=== PATIENT | female | born 1980 | race African-American/Black ===

== ENCOUNTER 2018-05-29 22:09 | Emergency (ER) | payer MEDICAID, MEDICARE ==
[~2018-05-29] VITALS: Ht 180.3 cm; Wt 61.0 kg
[2018-05-30] MEDS ORDERED: ONDANSETRON HCL 4MG/2ML VIAL IV STA (02:57)
[2018-05-30] MEDS ORDERED: KETOROLAC 30MG/ML VIAL IV STA (02:57)
[2018-05-30 03:25] LABS: BASOPHILS % 0.4 % (0.0-2.0); EOSINOPHILS % 1.3 % (0.0-5.0); HEMATOCRIT. 31.7 % (36.0-48.0); HEMOGLOBIN. 9.6 g/dL (12.0-16.0); LYMPHOCYTES % 24.7 % (20.0-50.0); MEAN CORPUSCULAR HEMOGLOBIN 21.1 pg (28.0-32.0); MEAN CORPUSCULAR VOLUME 69.9 fL (81.0-99.0); MEAN PLATELET VOLUME 9.1 fl (7.4-10.4); MONOCYTES % 7.1 % (2.0-8.0); NEUTROPHILS % 66.5 % (40.0-76.0); PLATELET 190 x1000/uL (130-400); RED BLOOD CELL COUNT 4.54 mill/uL (4.2-5.4); RED CELL DISTRIBUTION WIDTH 26.7 % (11.6-14.6)
[2018-05-30 03:30] LABS: INR 1.1; PROTHROMBIN TIME 10.9 sec (9.4-11.6)
[2018-05-30 03:42] LABS: CHLORIDE 108 mEq/L (98-107)
[2018-05-30 03:58] LABS: HCG SCREEN NEGATIVE
[2018-05-30] MEDS ORDERED: OXYCODONE HCL/ACETAMINOPHEN 5/325MG TABLET PO ONE (04:00)
[2018-05-30 04:36] VITALS: BP 117/77
[2018-05-30 06:12] LABS: PLATELET ESTIMATE NORMAL
== END 2018-05-30 06:30 | disposition home or self-care (01) ==
LOC: ER 22:09
DX: K52.9 Noninfective gastroenteritis and colitis, unspecified (principal); R10.9 Unspecified abdominal pain; J45.909 Unspecified asthma, uncomplicated
CPT/HCPCS: 36415; 80053; 83690; 84703; 85025; 85610; 93005; 96374; 96375; 99285; J1885; J2405

== ENCOUNTER 2018-11-12 20:29 | Emergency (ER) | payer MEDICARE ==
[~2018-11-12] VITALS: Ht 180.3 cm; Wt 61.5 kg
[2018-11-12] MEDS ORDERED: MAGNESIUM/ALUMINUM HYDROXIDE/SIMETHICONE 30ML UDC PO ONE (21:15)
[2018-11-12] MEDS ORDERED: VISCOUS LIDOCAINE 2% 15 ML UDC PO ONE (21:15)
[2018-11-12] MEDS ORDERED: ONDANSETRON HCL 4MG/2ML INJ IV ONE (21:45)
[2018-11-12] MEDS ORDERED: SODIUM CHLORIDE 0.9% 1,000 ML IV ONE (21:45)
[2018-11-12] MEDS ORDERED: KETOROLAC 30MG/ML VIAL IV ONE (22:15)
[2018-11-12 22:58] LABS: BASOPHILS % 0.3 % (0.0-2.0); EOSINOPHILS % 0.7 % (0.0-5.0); HEMOGLOBIN. 9.8 g/dL (12.0-16.0); LYMPHOCYTES % 23.1 % (20.0-50.0); MEAN CORPUSCULAR HEMOGLOBIN 23.7 pg (28.0-32.0); MEAN PLATELET VOLUME 8.5 fl (7.4-10.4); MONOCYTES % 8.4 % (2.0-8.0); NEUTROPHILS % 67.5 % (40.0-76.0); PLATELET 303 x1000/uL (130-400); RED BLOOD CELL COUNT 4.13 mill/uL (4.2-5.4); RED CELL DISTRIBUTION WIDTH 16.5 % (11.6-14.6)
[2018-11-12 23:11] LABS: CHLORIDE 106 mEq/L (98-107); HCG SCREEN NEGATIVE
[2018-11-13] MEDS ORDERED: OXYCODONE HCL 5MG TABLET PO ONE (01:00)
[2018-11-13 01:38] VITALS: BP 99/59
== END 2018-11-13 01:40 | disposition home or self-care (01) ==
LOC: ER 20:29
DX: R10.9 Unspecified abdominal pain (principal); R11.10 Vomiting, unspecified; R19.7 Diarrhea, unspecified; M25.579 Pain in unspecified ankle and joints of unspecified foot; J45.909 Unspecified asthma, uncomplicated; Z88.6 Allergy status to analgesic agent
CPT/HCPCS: 36415; 71045; 76705; 80053; 83880; 84484; 84703; 85025; 93005; 96361; 96374; 96375; 99284; J1885; J2405; J7030

== ENCOUNTER 2018-11-13 13:05 | Inpatient (IN) | payer MEDICARE ==
[~2018-11-13] VITALS: Ht 180.3 cm; Wt 59.0 kg
[2018-11-13 16:38] LABS: BASOPHILS % 0.2 % (0.0-2.0); EOSINOPHILS % 0.7 % (0.0-5.0); HEMATOCRIT. 35.3 % (36.0-48.0); LYMPHOCYTES % 17.7 % (20.0-50.0); MEAN CORPUSCULAR HEMOGLOBIN 23.6 pg (28.0-32.0); MEAN CORPUSCULAR VOLUME 75.6 fL (81.0-99.0); MEAN PLATELET VOLUME 8.4 fl (7.4-10.4); MONOCYTES % 5.4 % (2.0-8.0); PLATELET 360 x1000/uL (130-400); RED BLOOD CELL COUNT 4.67 mill/uL (4.2-5.4); RED CELL DISTRIBUTION WIDTH 16.4 % (11.6-14.6)
[2018-11-13] MEDS ORDERED: SODIUM CHLORIDE 0.9% 1,000 ML IV ONE (16:38)
[2018-11-13 16:43] LABS: CHLORIDE 105 mEq/L (98-107)
[2018-11-13] MEDS ORDERED: FENTANYL CITRATE/PF 50MCG/ML 2ML VIAL IV ONE (16:45)
[2018-11-13] MEDS ORDERED: ONDANSETRON HCL 4MG/2ML INJ IV ONE (16:45)
[2018-11-13 16:47] LABS: ETHANOL BLOOD < 10 mg/dL; PARTIAL THROMBOPLASTIN TIME 30.7 sec (23.4-31.0)
[2018-11-13 16:49] LABS: HCG SCREEN NEGATIVE
[2018-11-13] MEDS ORDERED: IOHEXOL-350 100 ML BOTTLE ONE (18:17)
[2018-11-13] MEDS ORDERED: ASPIRIN 81MG TABLET PO ONE (19:00)
[2018-11-13 19:14] LABS: CLARITY URINE CLEAR (CLEAR); COLOR URINE YELLOW (YELLOW); KETONES URINE NEGATIVE (NEGATIVE); LEUKOCYTE ESTERASE URINE NEGATIVE (NEGATIVE); NITRITE URINE NEGATIVE (NEGATIVE); OCCULT BLOOD URINE NEGATIVE (NEGATIVE); PROTEIN URINE NEGATIVE (NEGATIVE); SPECIFIC GRAVITY URINE 1.042 (1.005-1.030); UROBILINOGEN URINE 0.2 E.U./dL (0.2-1.0)
[2018-11-13 19:27] LABS: *AMPHETAMINES SCREEN URINE NEGATIVE (NEGATIVE); *BARBITURATES SCREEN URINE NEGATIVE (NEGATIVE); *BENZODIAZEPINES SCREEN URINE NEGATIVE (NEGATIVE)
[2018-11-13 19:28] LABS: *COCAINE SCREEN URINE NEGATIVE (NEGATIVE); CANNABINOID URINE SCREEN NEGATIVE (NEGATIVE); METHADONE URINE SCREEN NEGATIVE (NEGATIVE); OPIATES URINE SCREEN NEGATIVE (NEGATIVE); PHENCYCLIDINE URINE SCREEN NEGATIVE (NEGATIVE)
[2018-11-13] MEDS ORDERED: IPRATROPIUM/ALBUTEROL 0.5-3(2.5)MG/3ML NEB HHN PRN (20:00)
[2018-11-13] MEDS ORDERED: BENZONATATE 100MG CAPSULE PO PRN (20:00)
[2018-11-13 20:55] VITALS: BP 111/62
[2018-11-13 21:00] VITALS: BP_SYST 111; BP_DIAS 62; BP_DIAS 66
[2018-11-13] MEDS: KETOROLAC 15MG/ML VIAL IV PRN (23:08)
[2018-11-13] MEDS: SODIUM CHLORIDE 0.9% 1,000 ML IV SCH (23:09)
[2018-11-14] VITALS (7 sets, daily range): BP systolic 93–130; BP diastolic 52–66
[2018-11-14] MEDS: IPRATROPIUM/ALBUTEROL 0.5-3(2.5)MG/3ML NEB HHN SCH ×3 (00:50→13:17)
[2018-11-14] MEDS: KETOROLAC 15MG/ML VIAL IV PRN ×2 (05:11→11:55)
[2018-11-14 06:39] LABS: BASOPHILS % 0.3 % (0.0-2.0); EOSINOPHILS % 1.1 % (0.0-5.0); HEMATOCRIT. 30.1 % (36.0-48.0); HEMOGLOBIN. 9.5 g/dL (12.0-16.0); LYMPHOCYTES % 21.7 % (20.0-50.0); MEAN CORPUSCULAR HEMOGLOBIN 23.6 pg (28.0-32.0); MEAN CORPUSCULAR VOLUME 74.8 fL (81.0-99.0); MEAN PLATELET VOLUME 8.6 fl (7.4-10.4); MONOCYTES % 8.2 % (2.0-8.0); NEUTROPHILS % 68.7 % (40.0-76.0); PLATELET 262 x1000/uL (130-400); RED BLOOD CELL COUNT 4.02 mill/uL (4.2-5.4); RED CELL DISTRIBUTION WIDTH 16.7 % (11.6-14.6)
[2018-11-14] MEDS ORDERED: AZITHROMYCIN 500 MG TABLET PO SCH (09:00)
[2018-11-14 09:58] LABS: CHLORIDE 110 mEq/L (98-107)
[2018-11-14 10:06] LABS: PHOSPHORUS 3.5 mg/dL (2.5-4.9)
[2018-11-14] MEDS: SODIUM CHLORIDE 0.9% 1,000 ML IV SCH (12:59)
== END 2018-11-14 20:30 | disposition home or self-care (01) | DRG 313 ==
LOC: ER 13:05 → EDBEDREQ 17:24 → 8WST 18:37 → EDBEDREQTM 18:45 → EDBEDREQSVC 18:45 → EDBEDREQ 18:45 → SUPCPDRO 19:07 → ENRESERV 20:01
PROVIDERS: ADMIT Internal Medicine Nephrology; ATTEND Internal Medicine Nephrology
DX: R07.89 Other chest pain (principal); R04.2 Hemoptysis; D63.8 Anemia in other chronic diseases classified elsewhere; G47.33 Obstructive sleep apnea (adult) (pediatric); J45.909 Unspecified asthma, uncomplicated; K86.9 Disease of pancreas, unspecified; Z82.49 Family history of ischemic heart disease and other diseases of the circulatory system; Z82.5 Family history of asthma and other chronic lower respiratory diseases; Z88.6 Allergy status to analgesic agent; Z80.42 Family history of malignant neoplasm of prostate
CPT/HCPCS: 36415; 71045; 71275; 74177; 76705; 80048; 80305; 83605; 83735; 83880; 84100; 84484; 84703; 86850; 86900; 93005; 96361; 96374; 96375; 97162; 99284; 99291; G0482; J1885; J2405; J3010; J7030; J7620; Q9967

== ENCOUNTER 2018-11-26 21:56 | Emergency (ER) | payer MEDICARE ==
[~2018-11-26] VITALS: Ht 180.3 cm; Wt 61.0 kg
[2018-11-27 04:12] LABS: BASOPHILS % 0.5 % (0.0-2.0); EOSINOPHILS % 1.3 % (0.0-5.0); HEMATOCRIT. 31.4 % (36.0-48.0); HEMOGLOBIN. 9.5 g/dL (12.0-16.0); LYMPHOCYTES % 26.1 % (20.0-50.0); MEAN CORPUSCULAR HEMOGLOBIN 22.2 pg (28.0-32.0); MEAN CORPUSCULAR VOLUME 73.3 fL (81.0-99.0); MONOCYTES % 8.8 % (2.0-8.0); NEUTROPHILS % 63.3 % (40.0-76.0); PLATELET 209 x1000/uL (130-400); RED BLOOD CELL COUNT 4.28 mill/uL (4.2-5.4); RED CELL DISTRIBUTION WIDTH 16.9 % (11.6-14.6)
[2018-11-27 04:17] LABS: CHLORIDE 109 mEq/L (98-107)
[2018-11-27 04:19] LABS: HCG SCREEN NEGATIVE
[2018-11-27 06:12] LABS: CLARITY URINE CLOUDY (CLEAR); COLOR URINE YELLOW (YELLOW); KETONES URINE NEGATIVE (NEGATIVE); LEUKOCYTE ESTERASE URINE 3+ (NEGATIVE); NITRITE URINE NEGATIVE (NEGATIVE); OCCULT BLOOD URINE TRACE (NEGATIVE); PROTEIN URINE NEGATIVE (NEGATIVE); SPECIFIC GRAVITY URINE 1.018 (1.005-1.030); UROBILINOGEN URINE 0.2 E.U./dL (0.2-1.0)
[2018-11-27 06:42] VITALS: BP 96/62
== END 2018-11-27 07:07 | disposition home or self-care (01) ==
LOC: ER 21:56
DX: N39.0 Urinary tract infection, site not specified (principal); J45.909 Unspecified asthma, uncomplicated; Z88.6 Allergy status to analgesic agent
CPT/HCPCS: 36415; 71045; 81025; 84703; 93005; 99284

== ENCOUNTER 2018-12-10 23:18 | Inpatient (IN) | payer MEDICARE, MEDICAID ==
[~2018-12-10] VITALS: Ht 180.3 cm; Wt 59.0 kg
[2018-12-11] MEDS ORDERED: ONDANSETRON 4MG ODT PO STA (03:50)
[2018-12-11] MEDS ORDERED: TRAMADOL 50MG TABLET PO ONE (04:00)
[2018-12-11 04:15] LABS: BASOPHILS % 0.2 % (0.0-2.0); EOSINOPHILS % 0.5 % (0.0-5.0); HEMOGLOBIN. 8.2 g/dL (12.0-16.0); LYMPHOCYTES % 17.6 % (20.0-50.0); MEAN CORPUSCULAR HEMOGLOBIN 21.4 pg (28.0-32.0); MEAN CORPUSCULAR VOLUME 70.4 fL (81.0-99.0); MONOCYTES % 9.3 % (2.0-8.0); NEUTROPHILS % 72.4 % (40.0-76.0); PLATELET 271 x1000/uL (130-400); RED BLOOD CELL COUNT 3.84 mill/uL (4.2-5.4); RED CELL DISTRIBUTION WIDTH 16.7 % (11.6-14.6)
[2018-12-11 04:22] LABS: CHLORIDE 106 mEq/L (98-107)
[2018-12-11 06:59] LABS: CLARITY URINE CLEAR (CLEAR); COLOR URINE YELLOW (YELLOW); KETONES URINE NEGATIVE (NEGATIVE); LEUKOCYTE ESTERASE URINE 2+ (NEGATIVE); NITRITE URINE NEGATIVE (NEGATIVE); OCCULT BLOOD URINE NEGATIVE (NEGATIVE); PH URINE 5.5 (4.5-8.0); PROTEIN URINE NEGATIVE (NEGATIVE); SPECIFIC GRAVITY URINE 1.024 (1.005-1.030)
[2018-12-11] MEDS ORDERED: METOCLOPRAMIDE HCL 10MG/2ML VIAL IV ONE (07:30)
[2018-12-11] MEDS ORDERED: MORPHINE SULFATE 4 MG/ML CPJ (NOT FOR IM USE) IV ONE (07:30)
[2018-12-11] MEDS ORDERED: NITROFURANTOIN 100MG M/M CAPSULE PO ONE (08:45)
[2018-12-11 13:00] VITALS: BP 108/60
[2018-12-11 13:30] VITALS: BP 108/60
[2018-12-11 16:00] VITALS: BP 99/53
[2018-12-11] MEDS ORDERED: ENOXAPARIN 40MG/0.4ML SYR SUBCUT SCH (18:00)
[2018-12-11] MEDS ORDERED: HYDROMORPHONE HCL/PF 2MG/ML CPJ IV PRN (18:00)
[2018-12-11] MEDS ORDERED: ACETAMINOPHEN 325MG TABLET PO PRN (18:00)
[2018-12-11] MEDS ORDERED: LORAZEPAM 2MG/ML CPJ IV PRN (18:00)
[2018-12-11] MEDS ORDERED: DIPHENHYDRAMINE 50MG/ML VIAL IV PRN (18:00)
[2018-12-11] MEDS ORDERED: ONDANSETRON HCL 4MG/2ML INJ IV PRN (18:00)
[2018-12-11] MEDS ORDERED: CLONIDINE 0.1MG TABLET PO PRN (18:00)
[2018-12-11] MEDS ORDERED: ONDANSETRON 4MG ODT PO PRN (18:00)
[2018-12-11] MEDS: SODIUM CHLORIDE 0.9% 1,000 ML IV SCH (18:04)
[2018-12-11 20:00] VITALS: BP 105/64
[2018-12-11] MEDS: MORPHINE SULFATE 4 MG/ML CPJ (NOT FOR IM USE) IV PRN (20:36)
[2018-12-12] VITALS: BP 107/56
[2018-12-12] MEDS: MORPHINE SULFATE 4 MG/ML CPJ (NOT FOR IM USE) IV PRN ×2 (03:08→10:05)
[2018-12-12 04:00] VITALS: BP 94/53
[2018-12-12] MEDS ORDERED: POTASSIUM CHLORIDE 20MEQ TABLET SR PO NR (09:45)
[2018-12-12] MEDS ORDERED: CEFTRIAXONE 1 G PREMIX 50 ML IV NR (11:00)
[2018-12-12] MEDS: SODIUM CHLORIDE 0.9% 1,000 ML IV SCH (12:47)
[2018-12-12 15:14] LABS: *AMPHETAMINES SCREEN URINE NEGATIVE (NEGATIVE); *BARBITURATES SCREEN URINE NEGATIVE (NEGATIVE); PHENCYCLIDINE URINE SCREEN NEGATIVE (NEGATIVE)
[2018-12-12 15:15] LABS: *BENZODIAZEPINES SCREEN URINE NEGATIVE (NEGATIVE); *COCAINE SCREEN URINE NEGATIVE (NEGATIVE); METHADONE URINE SCREEN NEGATIVE (NEGATIVE); OPIATES URINE SCREEN PRESUMTIVE POSITIVE (NEGATIVE)
[2018-12-12 15:20] LABS: CANNABINOID URINE SCREEN NEGATIVE (NEGATIVE)
[2018-12-12 15:21] VITALS: BP 94/53
== END 2018-12-12 16:00 | disposition home or self-care (01) | DRG 690 ==
LOC: ER 23:18 → 5WST 12-11 08:52 → ENRESERV 12-11 11:38
PROVIDERS: ADMIT Internal Medicine Nephrology; ATTEND Internal Medicine Nephrology
DX: N39.0 Urinary tract infection, site not specified (principal); R07.89 Other chest pain; J45.909 Unspecified asthma, uncomplicated; Z76.5 Malingerer [conscious simulation]; Z91.19 Patient's noncompliance with other medical treatment and regimen; Z88.6 Allergy status to analgesic agent
CPT/HCPCS: 36415; 71045; 80305; 93005; 96374; 96375; 99285; J0696; J1650; J2270; J2765; J7030; Q0162

== ENCOUNTER 2018-12-23 22:49 | Emergency (ER) | payer MEDICARE, MEDICAID ==
[~2018-12-23] VITALS: Ht 180.3 cm; Wt 62.0 kg
[2018-12-24] MEDS ORDERED: SODIUM CHLORIDE 0.9% 1,000 ML IV ONE (00:35)
[2018-12-24 01:35] LABS: CHLORIDE 108 mEq/L (98-107)
[2018-12-24 01:39] LABS: BASOPHILS % 1.1 % (0.0-2.0); EOSINOPHILS % 2.4 % (0.0-5.0); HEMATOCRIT. 31.6 % (36.0-48.0); HEMOGLOBIN. 9.6 g/dL (12.0-16.0); LYMPHOCYTES % 38.5 % (20.0-50.0); MEAN CORPUSCULAR VOLUME 69.1 fL (81.0-99.0); MEAN PLATELET VOLUME 9.6 fl (7.4-10.4); MONOCYTES % 4.9 % (2.0-8.0); NEUTROPHILS % 53.1 % (40.0-76.0); PLATELET 273 x1000/uL (130-400); RED BLOOD CELL COUNT 4.58 mill/uL (4.2-5.4); RED CELL DISTRIBUTION WIDTH 17.8 % (11.6-14.6)
[2018-12-24] MEDS ORDERED: TRAMADOL 50MG TABLET PO ONE (02:15)
[2018-12-24 04:07] VITALS: BP 97/60
[2018-12-24 09:59] LABS: PLATELET ESTIMATE NORMAL
== END 2018-12-24 04:11 | disposition home or self-care (01) ==
LOC: ER 22:49
DX: S09.8XXA Other specified injuries of head, initial encounter (principal); M54.9 Dorsalgia, unspecified; R55 Syncope and collapse; J45.909 Unspecified asthma, uncomplicated; Z88.6 Allergy status to analgesic agent; W01.0XXA Fall on same level from slipping, tripping and stumbling without subsequent striking against object, initial encounter; Y93.89 Activity, other specified; Y92.89 Other specified places as the place of occurrence of the external cause; Y99.8 Other external cause status
CPT/HCPCS: 36415; 70450; 71045; 72100; 80053; 84484; 85025; 93005; 96360; 96361; 99284; J7030

== ENCOUNTER 2019-01-06 01:13 | Emergency (ER) | payer MEDICARE, MEDICAID ==
[~2019-01-06] VITALS: Ht 180.3 cm; Wt 61.0 kg
[2019-01-06] MEDS ORDERED: TRAMADOL 50MG TABLET PO ONE (11:00)
[2019-01-06 12:18] LABS: BASOPHILS % 0.7 % (0.0-2.0); HEMATOCRIT. 33.3 % (36.0-48.0); HEMOGLOBIN. 9.9 g/dL (12.0-16.0); LYMPHOCYTES % 25.5 % (20.0-50.0); MEAN CORPUSCULAR HEMOGLOBIN 20.8 pg (28.0-32.0); MEAN CORPUSCULAR VOLUME 69.7 fL (81.0-99.0); MONOCYTES % 6.4 % (2.0-8.0); NEUTROPHILS % 66.4 % (40.0-76.0); PLATELET 266 x1000/uL (130-400); RED BLOOD CELL COUNT 4.78 mill/uL (4.2-5.4); RED CELL DISTRIBUTION WIDTH 20.1 % (11.6-14.6)
[2019-01-06 12:20] LABS: CHLORIDE 107 mEq/L (98-107)
[2019-01-06] MEDS ORDERED: ALBUTEROL (0.5%) 2.5MG/0.5ML NEB HHN ONE (14:15)
[2019-01-06 14:35] LABS: PLATELET ESTIMATE NORMAL
[2019-01-06 15:03] VITALS: BP 110/53
== END 2019-01-06 15:04 | disposition home or self-care (01) ==
LOC: ER 01:13
DX: R07.89 Other chest pain (principal); J45.909 Unspecified asthma, uncomplicated; Z88.6 Allergy status to analgesic agent
CPT/HCPCS: 36415; 71045; 80053; 85025; 93005; 94640; 99284; J7611

== ENCOUNTER 2019-01-16 23:32 | Emergency (ER) | payer MEDICARE, MEDICAID ==
[~2019-01-16] VITALS: Ht 180.3 cm; Wt 57.9 kg
[2019-01-17] MEDS ORDERED: ONDANSETRON HCL 4MG/2ML INJ IV STA (00:22)
[2019-01-17] MEDS ORDERED: SODIUM CHLORIDE 0.9% 1,000 ML IV ONE (00:22)
[2019-01-17 00:57] LABS: BASOPHILS % 0.3 % (0.0-2.0); EOSINOPHILS % 1.4 % (0.0-5.0); HEMATOCRIT. 30.9 % (36.0-48.0); HEMOGLOBIN. 9.3 g/dL (12.0-16.0); LYMPHOCYTES % 21.7 % (20.0-50.0); MEAN CORPUSCULAR HEMOGLOBIN 21.1 pg (28.0-32.0); MEAN CORPUSCULAR VOLUME 70.3 fL (81.0-99.0); MEAN PLATELET VOLUME 8.3 fl (7.4-10.4); MONOCYTES % 7.7 % (2.0-8.0); NEUTROPHILS % 68.9 % (40.0-76.0); PLATELET 212 x1000/uL (130-400); RED BLOOD CELL COUNT 4.39 mill/uL (4.2-5.4); RED CELL DISTRIBUTION WIDTH 20.6 % (11.6-14.6)
[2019-01-17 00:59] LABS: CLARITY URINE CLEAR (CLEAR); COLOR URINE YELLOW (YELLOW); KETONES URINE NEGATIVE (NEGATIVE); LEUKOCYTE ESTERASE URINE NEGATIVE (NEGATIVE); NITRITE URINE NEGATIVE (NEGATIVE); OCCULT BLOOD URINE NEGATIVE (NEGATIVE); PH URINE 6.5 (4.5-8.0); PROTEIN URINE NEGATIVE (NEGATIVE)
[2019-01-17 01:03] VITALS: BP 115/70
[2019-01-17 01:04] LABS: CHLORIDE 109 mEq/L (98-107)
[2019-01-17 01:05] LABS: INR 1.1; PROTHROMBIN TIME 10.6 sec (9.1-11.1)
== END 2019-01-17 03:12 | disposition home or self-care (01) ==
LOC: ER 23:32
DX: K52.9 Noninfective gastroenteritis and colitis, unspecified (principal); K21.9 Gastro-esophageal reflux disease without esophagitis; R55 Syncope and collapse; D64.9 Anemia, unspecified; J45.909 Unspecified asthma, uncomplicated; Z88.6 Allergy status to analgesic agent
CPT/HCPCS: 36415; 71045; 80053; 81003; 81025; 83690; 83880; 84484; 85025; 85610; 93005; 96361; 96374; 99284; J2405; J7030

== ENCOUNTER 2019-02-10 22:27 | Emergency (ER) | payer MEDICARE, MEDICAID ==
[~2019-02-10] VITALS: Ht 180.3 cm; Wt 61.0 kg
[2019-02-11] MEDS ORDERED: SODIUM CHLORIDE 0.9% 1,000 ML IV ONE (03:35)
[2019-02-11] MEDS ORDERED: METOCLOPRAMIDE HCL 10MG/2ML VIAL IV STA (03:35)
[2019-02-11] MEDS ORDERED: MAGNESIUM/ALUMINUM HYDROXIDE/SIMETHICONE 30ML UDC PO STA (03:35)
[2019-02-11 03:57] LABS: BASOPHILS % 0.4 % (0.0-2.0); HEMATOCRIT. 32.7 % (36.0-48.0); HEMOGLOBIN. 9.7 g/dL (12.0-16.0); LYMPHOCYTES % 27.1 % (20.0-50.0); MEAN CORPUSCULAR HEMOGLOBIN 20.3 pg (28.0-32.0); MEAN CORPUSCULAR VOLUME 68.3 fL (81.0-99.0); MEAN PLATELET VOLUME 8.1 fl (7.4-10.4); MONOCYTES % 8.4 % (2.0-8.0); NEUTROPHILS % 63.1 % (40.0-76.0); PLATELET 236 x1000/uL (130-400); RED BLOOD CELL COUNT 4.78 mill/uL (4.2-5.4); RED CELL DISTRIBUTION WIDTH 20.3 % (11.6-14.6)
[2019-02-11 04:05] LABS: CHLORIDE 105 mEq/L (98-107)
[2019-02-11 04:09] LABS: ETHANOL BLOOD < 10 mg/dL
[2019-02-11 04:10] LABS: INR 1.1; PROTHROMBIN TIME 11.3 sec (9.1-11.1)
[2019-02-11 04:12] LABS: HCG SCREEN NEGATIVE
[2019-02-11 04:14] LABS: CLARITY URINE CLOUDY (CLEAR); COLOR URINE YELLOW (YELLOW); KETONES URINE 1+ (NEGATIVE); LEUKOCYTE ESTERASE URINE 2+ (NEGATIVE); NITRITE URINE NEGATIVE (NEGATIVE); OCCULT BLOOD URINE NEGATIVE (NEGATIVE); PROTEIN URINE NEGATIVE (NEGATIVE); SPECIFIC GRAVITY URINE 1.023 (1.005-1.030); UROBILINOGEN URINE 0.2 E.U./dL (0.2-1.0)
[2019-02-11 04:24] LABS: *AMPHETAMINES SCREEN URINE NEGATIVE (NEGATIVE); *BARBITURATES SCREEN URINE NEGATIVE (NEGATIVE); *BENZODIAZEPINES SCREEN URINE NEGATIVE (NEGATIVE); *COCAINE SCREEN URINE NEGATIVE (NEGATIVE); METHADONE URINE SCREEN NEGATIVE (NEGATIVE)
[2019-02-11 04:25] LABS: CANNABINOID URINE SCREEN NEGATIVE (NEGATIVE); PHENCYCLIDINE URINE SCREEN NEGATIVE (NEGATIVE)
[2019-02-11 04:26] LABS: PLATELET ESTIMATE NORMAL
[2019-02-11 04:32] LABS: OPIATES URINE SCREEN PRESUMTIVE POSITIVE (NEGATIVE)
[2019-02-11] MEDS ORDERED: MORPHINE SULFATE 4 MG/ML CPJ (NOT FOR IM USE) IV ONE (04:45)
[2019-02-11 06:20] VITALS: BP 100/60
== END 2019-02-11 06:48 | disposition home or self-care (01) ==
LOC: ER 22:27
DX: N39.0 Urinary tract infection, site not specified (principal); R07.1 Chest pain on breathing; R11.2 Nausea with vomiting, unspecified; J45.909 Unspecified asthma, uncomplicated; Z88.6 Allergy status to analgesic agent
CPT/HCPCS: 36415; 80053; 80305; 80320; 81003; 81025; 83690; 84703; 85025; 85610; 93005; 96361; 96374; 96375; 99284; J2270; J2765; J7030; G0480

== ENCOUNTER 2019-03-11 01:17 | Emergency (ER) | payer MEDICARE, MEDICAID ==
[~2019-03-11] VITALS: Ht 180.3 cm; Wt 68.0 kg
[2019-03-11] MEDS ORDERED: IBUPROFEN 800MG TABLET PO ONE (06:45)
[2019-03-11 07:06] LABS: CLARITY URINE CLOUDY (CLEAR); COLOR URINE YELLOW (YELLOW); KETONES URINE TRACE (NEGATIVE); LEUKOCYTE ESTERASE URINE 2+ (NEGATIVE); NITRITE URINE NEGATIVE (NEGATIVE); OCCULT BLOOD URINE NEGATIVE (NEGATIVE); PROTEIN URINE TRACE (NEGATIVE)
[2019-03-11 08:14] VITALS: BP 103/72
== END 2019-03-11 08:14 | disposition home or self-care (01) ==
LOC: ER 01:17
DX: S20.219A Contusion of unspecified front wall of thorax, initial encounter (principal); N39.0 Urinary tract infection, site not specified; V49.59XA Passenger injured in collision with other motor vehicles in traffic accident, initial encounter; Y93.89 Activity, other specified; Y92.89 Other specified places as the place of occurrence of the external cause; Y99.8 Other external cause status; Z88.5 Allergy status to narcotic agent; Z88.6 Allergy status to analgesic agent
CPT/HCPCS: 71045; 81025; 87077; 93005; 99284

== ENCOUNTER 2019-04-07 00:08 | Emergency (ER) | payer MEDICARE, MEDICAID ==
[~2019-04-07] VITALS: Ht 180.3 cm; Wt 62.0 kg
[2019-04-07] MEDS ORDERED: ONDANSETRON 4MG ODT PO ONE (03:15)
[2019-04-07 03:21] LABS: BASOPHILS % 0.1 % (0.0-2.0); EOSINOPHILS % 0.6 % (0.0-5.0); HEMATOCRIT. 32.6 % (36.0-48.0); HEMOGLOBIN. 10.2 g/dL (12.0-16.0); LYMPHOCYTES % 26.9 % (20.0-50.0); MEAN CORPUSCULAR HEMOGLOBIN 21.5 pg (28.0-32.0); MEAN CORPUSCULAR VOLUME 68.9 fL (81.0-99.0); MEAN PLATELET VOLUME 8.7 fl (7.4-10.4); NEUTROPHILS % 66.4 % (40.0-76.0); PLATELET 262 x1000/uL (130-400); RED BLOOD CELL COUNT 4.72 mill/uL (4.2-5.4); RED CELL DISTRIBUTION WIDTH 19.3 % (11.6-14.6)
[2019-04-07 03:34] LABS: PLATELET ESTIMATE NORMAL
[2019-04-07 03:43] LABS: CHLORIDE 111 mEq/L (98-107)
[2019-04-07 03:58] LABS: CLARITY URINE CLEAR (CLEAR); COLOR URINE YELLOW (YELLOW); KETONES URINE NEGATIVE (NEGATIVE); LEUKOCYTE ESTERASE URINE 3+ (NEGATIVE); NITRITE URINE NEGATIVE (NEGATIVE); OCCULT BLOOD URINE TRACE (NEGATIVE); PH URINE 6.5 (4.5-8.0); PROTEIN URINE NEGATIVE (NEGATIVE); SPECIFIC GRAVITY URINE 1.005 (1.005-1.030); UROBILINOGEN URINE 0.2 E.U./dL (0.2-1.0)
[2019-04-07 05:29] VITALS: BP 117/70
== END 2019-04-07 05:45 | disposition home or self-care (01) ==
LOC: ER 00:08
DX: R11.10 Vomiting, unspecified (principal); R19.7 Diarrhea, unspecified; J45.909 Unspecified asthma, uncomplicated; Z88.6 Allergy status to analgesic agent
CPT/HCPCS: 36415; 80048; 81003; 81025; 85025; 99283; Q0162

== ENCOUNTER 2019-06-29 01:32 | Emergency (ER) | payer MEDICAID, MEDICARE ==
[~2019-06-29] VITALS: Ht 180.3 cm; Wt 61.0 kg
[2019-06-29 03:29] LABS: BASOPHILS % 0.3 % (0.0-2.0); EOSINOPHILS % 0.2 % (0.0-5.0); HEMATOCRIT. 33.9 % (36.0-48.0); HEMOGLOBIN. 10.6 g/dL (12.0-16.0); LYMPHOCYTES % 22.4 % (20.0-50.0); MEAN CORPUSCULAR HEMOGLOBIN 23.8 pg (28.0-32.0); MEAN CORPUSCULAR VOLUME 76.4 fL (81.0-99.0); MEAN PLATELET VOLUME 8.2 fl (7.4-10.4); MONOCYTES % 6.8 % (2.0-8.0); NEUTROPHILS % 70.3 % (40.0-76.0); PLATELET 293 x1000/uL (130-400); RED BLOOD CELL COUNT 4.44 mill/uL (4.2-5.4); RED CELL DISTRIBUTION WIDTH 21.1 % (11.6-14.6)
[2019-06-29 03:36] LABS: CHLORIDE 105 mEq/L (98-107)
[2019-06-29 04:19] VITALS: BP 111/84
== END 2019-06-29 04:27 | disposition home or self-care (01) ==
LOC: ER 01:32
DX: R11.2 Nausea with vomiting, unspecified (principal); R19.7 Diarrhea, unspecified; R10.9 Unspecified abdominal pain; R33.9 Retention of urine, unspecified; J45.909 Unspecified asthma, uncomplicated; F17.200 Nicotine dependence, unspecified, uncomplicated; Z86.2 Personal history of diseases of the blood and blood-forming organs and certain disorders involving the immune mechanism; Z87.09 Personal history of other diseases of the respiratory system; Z92.84 Personal history of unintended awareness under general anesthesia; Z88.6 Allergy status to analgesic agent
CPT/HCPCS: 36415; 80048; 99283

== ENCOUNTER 2019-07-04 22:29 | Emergency (ER) | payer MEDICARE ==
[~2019-07-04] VITALS: Ht 180.3 cm; Wt 61.4 kg
[2019-07-05 00:53] LABS: BASOPHILS % 0.2 % (0.0-2.0); EOSINOPHILS % 0.1 % (0.0-5.0); HEMATOCRIT. 30.3 % (36.0-48.0); HEMOGLOBIN. 9.6 g/dL (12.0-16.0); LYMPHOCYTES % 17.8 % (20.0-50.0); MEAN CORPUSCULAR HEMOGLOBIN 24.1 pg (28.0-32.0); MEAN CORPUSCULAR VOLUME 76.3 fL (81.0-99.0); MEAN PLATELET VOLUME 8.4 fl (7.4-10.4); MONOCYTES % 8.9 % (2.0-8.0); PLATELET 206 x1000/uL (130-400); RED BLOOD CELL COUNT 3.97 mill/uL (4.2-5.4); RED CELL DISTRIBUTION WIDTH 20.2 % (11.6-14.6)
[2019-07-05 01:00] LABS: HCG SCREEN NEGATIVE
[2019-07-05 01:05] LABS: CHLORIDE 105 mEq/L (98-107)
[2019-07-05 02:20] VITALS: BP 108/78
== END 2019-07-05 02:34 | disposition home or self-care (01) ==
LOC: ER 22:29
DX: R07.89 Other chest pain (principal); R11.2 Nausea with vomiting, unspecified; D64.9 Anemia, unspecified; J45.909 Unspecified asthma, uncomplicated; Z88.6 Allergy status to analgesic agent
CPT/HCPCS: 36415; 71045; 81025; 83880; 84484; 84703; 93005; 99284

== ENCOUNTER 2019-07-05 02:39 | Emergency (ER) | payer MEDICARE ==
[~2019-07-05] VITALS: Ht 180.3 cm; Wt 61.1 kg
[2019-07-05] MEDS ORDERED: ONDANSETRON 4MG ODT PO ONE (03:00)
[2019-07-05 03:29] VITALS: BP 107/65
== END 2019-07-05 04:57 | disposition home or self-care (01) ==
LOC: ER 02:39
DX: R11.2 Nausea with vomiting, unspecified (principal); F45.21 Hypochondriasis; R07.89 Other chest pain; R55 Syncope and collapse; D64.9 Anemia, unspecified; J45.909 Unspecified asthma, uncomplicated; Z88.6 Allergy status to analgesic agent
CPT/HCPCS: 93005; 99283; Q0162

== ENCOUNTER 2019-08-11 01:24 | Emergency (ER) | payer MEDICARE ==
[~2019-08-11] VITALS: Ht 180.3 cm; Wt 59.1 kg
[2019-08-11 10:18] LABS: BASOPHILS % 0.3 % (0.0-2.0); EOSINOPHILS % 1.2 % (0.0-5.0); HEMATOCRIT. 31.5 % (36.0-48.0); HEMOGLOBIN. 9.8 g/dL (12.0-16.0); LYMPHOCYTES % 33.8 % (20.0-50.0); MEAN CORPUSCULAR VOLUME 76.8 fL (81.0-99.0); MEAN PLATELET VOLUME 8.3 fl (7.4-10.4); MONOCYTES % 8.3 % (2.0-8.0); NEUTROPHILS % 56.4 % (40.0-76.0); PLATELET 282 x1000/uL (130-400); RED CELL DISTRIBUTION WIDTH 19.6 % (11.6-14.6)
[2019-08-11 10:24] LABS: CHLORIDE 106 mEq/L (98-107)
[2019-08-11 10:27] LABS: HCG SCREEN NEGATIVE
[2019-08-11 11:00] VITALS: BP 112/74
== END 2019-08-11 11:24 | disposition home or self-care (01) ==
LOC: ER 01:24
DX: R07.89 Other chest pain (principal); R55 Syncope and collapse; J45.909 Unspecified asthma, uncomplicated; Z88.6 Allergy status to analgesic agent
CPT/HCPCS: 36415; 71045; 84703; 93005; 99284

== ENCOUNTER 2019-09-27 23:29 | Emergency (ER) | payer MEDICAID, MEDICARE ==
[~2019-09-27] VITALS: Ht 172.7 cm; Wt 66.0 kg
[2019-09-28 00:24] LABS: BASOPHILS % 0.3 % (0.0-2.0); EOSINOPHILS % 0.6 % (0.0-5.0); HEMATOCRIT. 32.1 % (36.0-48.0); HEMOGLOBIN. 10.1 g/dL (12.0-16.0); LYMPHOCYTES % 22.2 % (20.0-50.0); MEAN CORPUSCULAR HEMOGLOBIN 24.7 pg (28.0-32.0); MEAN CORPUSCULAR VOLUME 78.2 fL (81.0-99.0); MEAN PLATELET VOLUME 8.9 fl (7.4-10.4); MONOCYTES % 9.4 % (2.0-8.0); NEUTROPHILS % 67.5 % (40.0-76.0); PLATELET 251 x1000/uL (130-400); RED CELL DISTRIBUTION WIDTH 21.7 % (11.6-14.6)
[2019-09-28] MEDS ORDERED: VISCOUS LIDOCAINE 2% 15 ML UDC PO ONE (00:30)
[2019-09-28] MEDS ORDERED: MAGNESIUM/ALUMINUM HYDROXIDE/SIMETHICONE 30ML UDC PO ONE (00:30)
[2019-09-28] MEDS ORDERED: DICYCLOMINE 10 MG/5 ML ORAL SYR PO ONE (00:30)
[2019-09-28 00:31] LABS: CHLORIDE 103 mEq/L (98-107)
[2019-09-28 00:53] LABS: ETHANOL BLOOD 78 mg/dL
[2019-09-28 04:21] LABS: CLARITY URINE CLEAR (CLEAR); COLOR URINE YELLOW (YELLOW); KETONES URINE NEGATIVE (NEGATIVE); LEUKOCYTE ESTERASE URINE 1+ (NEGATIVE); NITRITE URINE NEGATIVE (NEGATIVE); OCCULT BLOOD URINE NEGATIVE (NEGATIVE); PROTEIN URINE NEGATIVE (NEGATIVE); SPECIFIC GRAVITY URINE 1.006 (1.005-1.030); UROBILINOGEN URINE 0.2 E.U./dL (0.2-1.0)
[2019-09-28 04:29] LABS: *AMPHETAMINES SCREEN URINE NEGATIVE (NEGATIVE); *BARBITURATES SCREEN URINE NEGATIVE (NEGATIVE); *BENZODIAZEPINES SCREEN URINE NEGATIVE (NEGATIVE); *COCAINE SCREEN URINE NEGATIVE (NEGATIVE)
[2019-09-28 04:30] LABS: CANNABINOID URINE SCREEN NEGATIVE (NEGATIVE); METHADONE URINE SCREEN NEGATIVE (NEGATIVE); OPIATES URINE SCREEN NEGATIVE (NEGATIVE); PHENCYCLIDINE URINE SCREEN NEGATIVE (NEGATIVE)
[2019-09-28] MEDS ORDERED: MORPHINE SULFATE 10 MG/ML CPJ IM ONE (15:30)
[2019-09-28 18:15] VITALS: BP 107/66
== END 2019-09-28 20:02 | disposition home or self-care (01) ==
LOC: ER 23:29
DX: F43.20 Adjustment disorder, unspecified (principal); R45.851 Suicidal ideations; R07.89 Other chest pain; F10.129 Alcohol abuse with intoxication, unspecified; Y90.0 Blood alcohol level of less than 20 mg/100 ml; F41.9 Anxiety disorder, unspecified; J45.909 Unspecified asthma, uncomplicated; Z88.6 Allergy status to analgesic agent
CPT/HCPCS: 36415; 71045; 80053; 80305; 80307; 80320; 80329; 81003; 81025; 84484; 85025; 93005; 96372; 99284; J2270; G0480

== ENCOUNTER 2019-11-24 02:26 | Emergency (ER) | payer MEDICAID, MEDICARE ==
[~2019-11-24] VITALS: Ht 180.3 cm; Wt 60.0 kg
[2019-11-24 08:33] VITALS: BP 108/72
== END 2019-11-24 10:04 | disposition left against medical advice (07) ==
LOC: ER 02:26
DX: Z53.21 Procedure and treatment not carried out due to patient leaving prior to being seen by health care provider (principal)
CPT/HCPCS: 93005

== ENCOUNTER 2019-12-17 00:25 | Emergency (ER) | payer MEDICARE ==
[~2019-12-17] VITALS: Ht 177.8 cm; Wt 66.0 kg
[2019-12-17 03:57] VITALS: BP 103/53
== END 2019-12-17 04:39 | disposition home or self-care (01) ==
LOC: ER 00:25
DX: S93.602A Unspecified sprain of left foot, initial encounter (principal); F17.200 Nicotine dependence, unspecified, uncomplicated; J45.909 Unspecified asthma, uncomplicated; R19.7 Diarrhea, unspecified; J11.1 Influenza due to unidentified influenza virus with other respiratory manifestations; X58.XXXA Exposure to other specified factors, initial encounter; Y93.9 Activity, unspecified; Y92.9 Unspecified place or not applicable; Z88.6 Allergy status to analgesic agent
CPT/HCPCS: 99283

== ENCOUNTER 2020-01-08 01:25 | Emergency (ER) | payer MEDICARE ==
[~2020-01-08] VITALS: Ht 154.9 cm; Wt 62.0 kg
[2020-01-08 01:41] VITALS: BP 99/58
== END 2020-01-08 04:40 | disposition home or self-care (01) ==
LOC: ER 01:25
DX: S93.402A Sprain of unspecified ligament of left ankle, initial encounter (principal); J45.909 Unspecified asthma, uncomplicated; D64.9 Anemia, unspecified; G47.30 Sleep apnea, unspecified; X50.1XXA Overexertion from prolonged static or awkward postures, initial encounter; Y93.89 Activity, other specified; Y92.9 Unspecified place or not applicable; Z88.6 Allergy status to analgesic agent
CPT/HCPCS: 73610; 99283

== ENCOUNTER 2020-02-28 22:31 | Emergency (ER) | payer MEDICAID, MEDICARE ==
[~2020-02-28] VITALS: Ht 180.3 cm; Wt 61.3 kg
[2020-02-29] MEDS ORDERED: ONDANSETRON HCL 4MG/2ML INJ IV ONE (00:30)
[2020-02-29] MEDS ORDERED: SODIUM CHLORIDE 0.9% 1,000 ML IV ONE (00:30)
[2020-02-29 01:19] LABS: BASOPHILS % 0.5 % (0.0-2.0); EOSINOPHILS % 0.3 % (0.0-5.0); HEMATOCRIT. 37.5 % (36.0-48.0); HEMOGLOBIN. 12.2 g/dL (12.0-16.0); LYMPHOCYTES % 13.7 % (20.0-50.0); MEAN CORPUSCULAR HEMOGLOBIN 27.2 pg (28.0-32.0); MEAN CORPUSCULAR VOLUME 83.3 fL (81.0-99.0); MEAN PLATELET VOLUME 9.3 fl (7.4-10.4); MONOCYTES % 4.6 % (2.0-8.0); NEUTROPHILS % 80.9 % (40.0-76.0); PLATELET 173 x1000/uL (130-400); RED CELL DISTRIBUTION WIDTH 17.8 % (11.6-14.6)
[2020-02-29 01:32] LABS: CHLORIDE 102 mEq/L (98-107)
[2020-02-29] MEDS ORDERED: MORPHINE SULFATE 2 MG/ML CPJ (NOT FOR IM USE) IV ONE (02:30)
[2020-02-29 03:31] LABS: CLARITY URINE CLEAR (CLEAR); COLOR URINE YELLOW (YELLOW); KETONES URINE TRACE (NEGATIVE); LEUKOCYTE ESTERASE URINE TRACE (NEGATIVE); NITRITE URINE NEGATIVE (NEGATIVE); OCCULT BLOOD URINE 3+ (NEGATIVE); PH URINE 6.5 (4.5-8.0); PROTEIN URINE NEGATIVE (NEGATIVE); SPECIFIC GRAVITY URINE 1.012 (1.005-1.030)
[2020-02-29 03:56] VITALS: BP 113/53
== END 2020-02-29 04:00 | disposition home or self-care (01) ==
LOC: ER 22:31
DX: R07.89 Other chest pain (principal); R10.11 Right upper quadrant pain; D64.9 Anemia, unspecified; J45.909 Unspecified asthma, uncomplicated; Z88.6 Allergy status to analgesic agent; R11.2 Nausea with vomiting, unspecified; R19.7 Diarrhea, unspecified
CPT/HCPCS: 36415; 71045; 80053; 81003; 81025; 83690; 83880; 84484; 85025; 85379; 93005; 96361; 96374; 96375; 99285; J2270; J2405; J7030

== ENCOUNTER 2022-03-05 21:51 | Emergency (ER) | payer MEDICARE, MEDICAID ==
[~2022-03-05] VITALS: Ht 180.3 cm; Wt 59.6 kg
[2022-03-05] MEDS ORDERED: ONDANSETRON 4MG ODT PO ONE (22:45)
[2022-03-05 23:32] LABS: BASOPHILS % 0.2 % (0.0-2.0); EOSINOPHILS % 1.5 % (0.0-5.0); HEMATOCRIT. 31.7 % (36.0-48.0); HEMOGLOBIN. 10.2 g/dL (12.0-16.0); LYMPHOCYTES % 21.6 % (20.0-50.0); MEAN CORPUSCULAR HEMOGLOBIN 26.2 pg (28.0-32.0); MEAN CORPUSCULAR VOLUME 81.7 fL (81.0-99.0); NEUTROPHILS % 66.7 % (40.0-76.0); PLATELET 273 x1000/uL (130-400); RED BLOOD CELL COUNT 3.88 mill/uL (4.2-5.4); RED CELL DISTRIBUTION WIDTH 19.8 % (11.6-14.6)
[2022-03-05 23:36] LABS: CHLORIDE 110 mEq/L (98-107)
[2022-03-06 00:07] LABS: HCG SCREEN NEGATIVE
[2022-03-06] MEDS ORDERED: MORPHINE SULFATE 4 MG/ML CPJ (NOT FOR IM USE) IV ONE (03:30)
[2022-03-06] MEDS ORDERED: ONDANSETRON HCL 4MG/2ML INJ IV ONE (03:30)
[2022-03-06] MEDS ORDERED: MORPHINE SULFATE 10 MG/ML CPJ IM ONE (04:15)
[2022-03-06] MEDS ORDERED: MORPHINE SULFATE 2 MG/ML CPJ (NOT FOR IM USE) IV NR (04:20)
[2022-03-06 04:26] VITALS: BP 126/89
[2022-03-06] MEDS ORDERED: HYDR10CA3 MT (04:42)
[2022-03-06] MEDS ORDERED: NALO4SPR BOTHNSTRLS (04:42)
== END 2022-03-06 05:04 | disposition home or self-care (01) ==
LOC: ER 21:51
DX: S32.018A Other fracture of first lumbar vertebra, initial encounter for closed fracture (principal); R13.10 Dysphagia, unspecified; J45.909 Unspecified asthma, uncomplicated; G47.30 Sleep apnea, unspecified; R07.9 Chest pain, unspecified; R19.7 Diarrhea, unspecified; Z88.6 Allergy status to analgesic agent; W01.0XXA Fall on same level from slipping, tripping and stumbling without subsequent striking against object, initial encounter; Y93.89 Activity, other specified; Y92.018 Other place in single-family (private) house as the place of occurrence of the external cause
CPT/HCPCS: 36415; 70360; 71045; 72131; 80053; 84703; 85025; 86703; 93005; 96372; 99285; J2270; Q0162

== ENCOUNTER 2023-03-30 22:34 | Emergency (ER) | payer MEDICARE, MEDICAID ==
[~2023-03-30] VITALS: Ht 180.3 cm; Wt 61.3 kg
[~2023-03-30 22:34] MED LIST: HYDR10CA3 MT; NALO4SPR BOTHNSTRLS
[2023-03-31 03:10] VITALS: BP 108/58
[2023-03-31 03:32] LABS: BASOPHILS % 0.3 % (0.0-2.0); EOSINOPHILS % 3.9 % (0.0-5.0); HEMATOCRIT. 34.6 % (36.0-48.0); HEMOGLOBIN. 10.8 g/dL (12.0-16.0); LYMPHOCYTES % 20.4 % (20.0-50.0); MEAN CORPUSCULAR HEMOGLOBIN 22.6 pg (28.0-32.0); MEAN CORPUSCULAR VOLUME 72.3 fL (81.0-99.0); MEAN PLATELET VOLUME 8.8 fl (7.4-10.4); NEUTROPHILS % 69.4 % (40.0-76.0); PLATELET 249 x1000/uL (130-400); RED BLOOD CELL COUNT 4.79 mill/uL (4.2-5.4)
[2023-03-31] MEDS ORDERED: MAGNESIUM/ALUMINUM HYDROXIDE/SIMETHICONE 30ML UDC PO STA (03:32)
[2023-03-31 03:37] LABS: INR 0.9; PARTIAL THROMBOPLASTIN TIME 28.5 sec (23.4-31.0)
[2023-03-31 03:38] LABS: CHLORIDE 107 mEq/L (98-107)
[2023-03-31] MEDS ORDERED: SODIUM CHLORIDE 0.9% 1,000 ML IV ONE (03:45)
[2023-03-31 03:47] LABS: CLARITY URINE CLEAR (CLEAR); COLOR URINE YELLOW (YELLOW); KETONES URINE NEGATIVE (NEGATIVE); LEUKOCYTE ESTERASE URINE 1+ (NEGATIVE); NITRITE URINE NEGATIVE (NEGATIVE); OCCULT BLOOD URINE TRACE (NEGATIVE); PH URINE 6.5 (4.5-8.0); PROTEIN URINE NEGATIVE (NEGATIVE); SPECIFIC GRAVITY URINE 1.021 (1.005-1.030)
[2023-03-31 05:32] LABS: PLATELET ESTIMATE NORMAL
[2023-03-31] MEDS ORDERED: PROT40 MT (05:45)
== END 2023-03-31 06:16 | disposition home or self-care (01) ==
LOC: ER 22:34
DX: R07.89 Other chest pain (principal); R10.10 Upper abdominal pain, unspecified; J45.909 Unspecified asthma, uncomplicated; Z88.6 Allergy status to analgesic agent
CPT/HCPCS: 36415; 71045; 80053; 81003; 84484; 85025; 93005; 96360; 99285; J7030